=== PATIENT | male | born 1960 | race Caucasian/White ===

== ENCOUNTER → 2019-05-16 | Outpatient (REF) | payer OTHER ==
[2019-05-22 14:07] LABS: ALPRAZOLAM, URINE Negative (Cutoff=100); BENZODIAZEPINES, URINE Positive ng/mL (Cutoff=100); CANNABINOID, URINE Negative (Cutoff=20); CLONAZEPAM, URINE Negative (Cutoff=100); CREATININE, URINE 44.9 mg/dL (20.0-300.0); FENTANYL URINE Positive (.); FENTANYL URINE CONFIRM 5886 pg/mL (Cutoff=500); FENTANYL/NORFENTANYL Positive (Cutoff=2000); FLURAZEPAM, URINE Negative (Cutoff=100); LORAZEPAM, URINE Negative (Cutoff=100); MIDAZOLAM, URINE Negative (Cutoff=100); NORDIAZEPAM, URINE Positive (.); NORDIAZEPAM, URINE CONFIRM 113 ng/mL (Cutoff=100); NORFENTANYL URINE Positive (.); NORFENTANYL URINE CONFIRM 78562 pg/mL (Cutoff=500); OXAZEPAM, URINE Positive (.); OXAZEPAM, URINE CONFIRM 309 ng/mL (Cutoff=100); OXYCODONE URINE Positive (.); OXYCODONE, URINE CONFIRM 781 ng/mL (Cutoff=100); OXYCODONE/OXYMORPH, URINE Positive (Cutoff=100); OXYMORPHONE, URINE Positive (.); OXYMORPHONE, URINE CONFIRM 1176 ng/mL (Cutoff=100); TEMAZEPAM, URINE Positive (.); TEMAZEPAM, URINE CONFIRM 202 ng/mL (Cutoff=100); TRIAZOLAM, URINE Negative (Cutoff=100)
== END ==
LOC: M SFHCLACO 15:10
PROVIDERS: ATTEND Physician Assistant
DX: F11.20 Opioid dependence, uncomplicated (principal)